=== PATIENT | female | born 1975 | race African-American/Black ===

== ENCOUNTER 2020-04-09 12:51 | Emergency (ER) | payer MEDICAID ==
[2020-04-09] MEDS ORDERED: Ketorolac 30 MG/ML SDV IM ONE (13:21)
[2020-04-09] MEDS ORDERED: Acetaminophen/HYDROcodone 325-5 MG Tab PO ONE (13:21)
[2020-04-09] MEDS ORDERED: FLU VACC QS2020-21(6MOS UP)/PF 60 MCG/0.5 ML SYRINGE IM ONE (13:45)
--- NOTE | 2020-04-09 13:57 | EDM.PDOC ---
ED HPI GENERAL MEDICAL PROBLEM - General Chief Complaint: Back Pain or Injury Stated Complaint: [facility] Time Seen by Provider: 04/09/20 13:15 Source of Information: Reports: Patient, RN Notes Reviewed - History of Present Illness INITIAL COMMENTS - FREE TEXT/NARRATIVE: 45 yr old female comes in with L leg pain. This has been going on off and on for months, worse today. No recent injury. Sharp pain L low back that radiates down thigh of LLE. No numbness or tingling. Ibuprofen not giving much relief. Treatments AEROSPACE MANAGER: Reports: Other (see below) Other Treatments AEROSPACE MANAGER: muscle relaxant of her boyfriends Left Hip Pain Score (Numeric/FACES): 10 - Related Data Allergies Allergy/AdvReac Type Severity Reaction Status Date / Time No Known Allergies Allergy Verified 04/09/20 13:07 Home Meds: Home Meds Acetaminophen/HYDROcodone [[place] 325-5 MG] 1 tab PO Q6H PRN #10 tablet 04/09/20 [Rx] Escitalopram [Lexapro] 10 mg PO DAILY 04/09/20 [History] Prazosin HCl [Prazosin] 2 mg PO DAILY 04/09/20 [History] hydrOXYzine pamoate [Vistaril] 25 mg PO DAILY 04/09/20 [History] lamoTRIgine [Lamotrigine] 25 mg PO DAILY 04/09/20 [History] predniSONE [Prednisone] 20 mg PO DAILY #7 tablet 04/09/20 [Rx] Past Medical History Musculoskeletal History: Reports: Other (See Below) Other Musculoskeletal History: left hip injury from accident many years ago Psychiatric History: Reports: Anxiety, Bipolar Social & Family History - Tobacco Use Tobacco Use Status *Q: Current Every Day Tobacco User Years of Tobacco use: 23 Packs/Tins Daily: 0.2 - Caffeine Use Caffeine Use: Reports: None - Recreational Drug Use Recreational Drug Use: No ED ROS GENERAL - Review of Systems Review Of Systems: See Below Constitutional: Denies: Fever, Chills, Diaphoresis HEENT: Reports: No Symptoms Respiratory: Reports: No Symptoms Cardiovascular: Reports: No Symptoms GI/Abdominal: Reports: No Symptoms Musculoskeletal: Reports: Back Pain, Leg Pain Skin: Reports: No Symptoms Neurological: Reports: No Symptoms ED EXAM,LOWER BACK PAIN/INJURY - Physical Exam Exam: See Below General Appearance: Alert, Moderate Distress Head: Atraumatic Neck: Supple Respiratory/Chest: No Respiratory Distress, Lungs Clear, Normal Breath Sounds Cardiovascular: Regular Rate, Rhythm Back Exam: Other (no visible swelling). No: Paraspinal Tenderness, Vertebral Tenderness Extremities: Normal Inspection. No: Pedal Edema, Leg Pain Neurological: Alert, No Motor/Sensory Deficits, Straight Leg Raise (L) (pain) Course - Vital Signs Last Recorded V/S: Last Vital Signs Temp 98.8 F 04/09/20 13:00 Pulse 95 04/09/20 13:00 Resp 20 04/09/20 13:00 BP 108/72 04/09/20 13:00 Pulse Ox 100 04/09/20 13:00 - Orders/Labs/Meds Orders: Active Orders 24 hr Category Date Time Status Influenza Vaccine Charge [RC] .DISCHARGE Care 04/09/20 13:10 Active Meds: Medications Discontinued Medications Generic Name Dose Route Start Last Admin Trade Name Freq PRN Reason Stop Dose Admin Hydrocodone Bitart/Acetaminophen 1 tab 04/09/20 13:21 04/09/20 13:59 [place] 325-5 Mg PO 04/09/20 13:22 1 tab ONETIME ONE Administration Influenza Virus Vaccine 1 each 04/09/20 13:10 Pharmacy To Dose - Influenza Vaccine IM 04/09/20 13:11 ONETIME ONE Influenza Virus Vaccine 60 mcg 04/09/20 13:45 04/09/20 14:03 Fluzone Quad [id number] Syringe IM 04/09/20 13:46 Not Given .ONCE ONE Ketorolac Tromethamine 30 mg 04/09/20 13:21 04/09/20 13:59 Toradol IM 04/09/20 13:22 30 mg ONETIME ONE Administration Departure - Departure Time of Disposition: 13:53 Disposition: Home, Self-Care 01 Condition: Fair Clinical Impression: Back pain Qualifiers: Back pain location: low back pain Chronicity: acute Back pain laterality: left Sciatica presence: with sciatica Sciatica laterality: sciatica of left side Qualified Code(s): M54.42 - Lumbago with sciatica, left side - Discharge Information Prescriptions: Acetaminophen/HYDROcodone [[place] 325-5 MG] 1 tab PO Q6H PRN #10 tablet PRN Reason: Pain predniSONE [Prednisone] 20 mg PO DAILY #7 tablet Instructions: Acute Back Pain, Adult Referrals: PCP,None [Primary Care Provider] - Forms: ED Department Discharge Additional Instructions: Rest back, no heavy lifting. Alternate ice and heat low back as needed. Advil or ibuprofen 400 mg or 2 tabs 3 times daily. Tylenol in between doses for extra pain relief as needed or hydrocodone in between doses 2 to 3 times daily if needed for severe pain. Prescription has been sent to [facility], [facility]. See one of providers at our [facility] medical clinic in about 3 to 4 days for recheck, call [phone] for appointment. Sepsis Event Note (ED) - Evaluation Sepsis Screening Result: No Definite Risk - Focused Exam Vital Signs: Vital Signs Temp Pulse Resp BP Pulse Ox 04/09/20 13:00 98.8 F 95 20 108/72 100 - My Orders Last 24 Hours: My Active Orders 04/09/20 13:10 Influenza Vaccine Charge [RC] .DISCHARGE - Assessment/Plan Last 24 Hours: My Active Orders 04/09/20 13:10 Influenza Vaccine Charge [RC] .DISCHARGE
== END 2020-04-09 15:05 | disposition home or self-care (01) ==
LOC: JD.ED 12:51
DX: M54.42 Lumbago with sciatica, left side (principal); F31.9 Bipolar disorder, unspecified; F41.9 Anxiety disorder, unspecified; F17.210 Nicotine dependence, cigarettes, uncomplicated; Z79.899 Other long term (current) drug therapy
CPT/HCPCS: 96372; 99284; A9270; J1885; 99283

== ENCOUNTER 2021-02-12 07:40 | Emergency (ER) | payer MEDICAID ==
--- NOTE | 2021-02-12 08:12 | EDM.PDOC ---
ED HPI GENERAL MEDICAL PROBLEM - General Chief Complaint: General Stated Complaint: chest pain Time Seen by Provider: 02/12/21 07:53 Source of Information: Reports: Patient History Limitations: Reports: No Limitations - History of Present Illness INITIAL COMMENTS - FREE TEXT/NARRATIVE: The patient presents with chest and dima pain. This has been going on for about a week. She has no shortness of breath with it. She denies having a fever, chills or cough. She says the pain comes and goes. She has no headache with it. She has some abdominal cramping at times but she feels her period is coming. She denies any injury to her arms. The pain is in both arms. She has no numbness or weakness. She has a history of schizophrenia and she has not taken her medications in about a week. Onset: Gradual Duration: Week(s): (1) Location: Reports: Chest, Upper Extremity, Left, Upper Extremity, Right Quality: Reports: Sharp Severity: Moderate Improves with: Reports: None Worsens with: Reports: None Associated Symptoms: Reports: Chest Pain. Denies: Cough, Fever/Chills, Headaches, Nausea/Vomiting, Shortness of Breath Generalized Pain Score (Numeric/FACES): 9 - Related Data Allergies Allergy/AdvReac Type Severity Reaction Status Date / Time No Known Allergies Allergy Verified 02/12/21 07:49 Home Meds: Home Meds Acetaminophen/HYDROcodone [[place] 325-5 MG] 1 tab PO Q6H PRN #10 tablet 04/09/20 [Rx] Escitalopram [Lexapro] 10 mg PO DAILY 04/09/20 [History] Prazosin HCl [Prazosin] 2 mg PO DAILY 04/09/20 [History] hydrOXYzine pamoate [Vistaril] 25 mg PO DAILY 04/09/20 [History] lamoTRIgine [Lamotrigine] 25 mg PO DAILY 04/09/20 [History] predniSONE [Prednisone] 20 mg PO DAILY #7 tablet 04/09/20 [Rx] Past Medical History Musculoskeletal History: Reports: Other (See Below) Other Musculoskeletal History: left hip injury from accident many years ago Psychiatric History: Reports: Anxiety, Bipolar Endocrine/Metabolic History: Reports: Obesity/BMI 30+ Social & Family History - Tobacco Use Tobacco Use Status *Q: Current Every Day Tobacco User Years of Tobacco use: 14 Packs/Tins Daily: 0.5 - Caffeine Use Caffeine Use: Reports: Coffee - Recreational Drug Use Recreational Drug Use: Yes Recreational Drug Type: Reports: Marijuana/Hashish ED ROS GENERAL - Review of Systems Review Of Systems: See Below Constitutional: Reports: No Symptoms HEENT: Reports: No Symptoms Respiratory: Reports: No Symptoms Cardiovascular: Reports: No Symptoms Endocrine: Reports: No Symptoms GI/Abdominal: Reports: No Symptoms : Reports: No Symptoms Musculoskeletal: Reports: Arm Pain (bilateral) Skin: Reports: No Symptoms ED EXAM, GENERAL - Physical Exam Exam: See Below Exam Limited By: No Limitations General Appearance: Alert, No Apparent Distress Ears: Normal External Exam Nose: Normal Inspection Head: Atraumatic, Normocephalic Neck: Normal Inspection Respiratory/Chest: No Respiratory Distress, Lungs Clear, Normal Breath Sounds Cardiovascular: Regular Rate, Rhythm, No Edema, No Murmur GI/Abdominal: Soft, Non-Tender, No Organomegaly, No Mass Back Exam: Normal Inspection Extremities: Other (No pain upon palpation to both arms. Good sensation and pulses bilaterally.) Neurological: Alert, Oriented, No Motor/Sensory Deficits #1 Interpretation EKG Date: 02/12/21 Time: 07:52 Rhythm: NSR Rate (Beats/Min): 79 [place]: Normal P-Wave: Present QRS: Normal ST-T: Normal QT: Normal Course - Vital Signs Last Recorded V/S: Last Vital Signs Temp 96.9 F 02/12/21 07:46 Pulse 87 02/12/21 07:46 Resp 18 02/12/21 07:46 BP 133/94 H 02/12/21 07:46 Pulse Ox 99 02/12/21 07:46 - Orders/Labs/Meds Orders: Active Orders 24 hr Category Date Time Status Cardiac Monitoring [RC] . DIRECTED Care 02/12/21 08:06 Active Labs: Laboratory Tests 02/12/21 02/12/21 Range/Units 08:15 08:15 WBC 10.33 H (3.98-10.04) K/mm3 RBC 4.53 (3.98-5.22) M/mm3 Hgb 11.0 L (11.2-15.7) gm/dl Hct 34.5 (34.1-44.9) % MCV 76.2 L (79.4-94.8) fl MCH 24.3 L (25.6-32.2) pg MCHC 31.9 L (32.2-35.5) g/dl RDW Std Deviation 43.0 (36.4-46.3) fL Plt Count 326 (182-369) K/mm3 MPV 9.5 (9.4-12.3) fl Neut % (Auto) 68.9 (34.0-71.1) % Lymph % (Auto) 21.3 (19.3-51.7) % [place] % (Auto) 7.3 (4.7-12.5) % Eos % (Auto) 2.1 (0.7-5.8) Baso % (Auto) 0.2 (0.1-1.2) % Neut # (Auto) 7.12 H (1.56-6.13) K/mm3 Lymph # (Auto) 2.20 (1.18-3.74) K/mm3 [place] # (Auto) 0.75 H (0.24-0.36) K/mm3 Eos # (Auto) 0.22 (0.04-0.36) K/mm3 Baso # (Auto) 0.02 (0.01-0.08) K/mm3 Sodium 139 (136-145) mEq/L Potassium 3.7 (3.5-5.1) mEq/L Chloride 105 (98-107) mEq/L Carbon Dioxide 22 (21-32) mEq/L Anion Gap 15.7 H (5-15) BUN 9 (7-18) mg/dL Creatinine 0.7 (0.55-1.02) mg/dL Est Cr Clr Drug Dosing 78.58 mL/min Estimated GFR (MDRD) > 60 (>60) mL/min BUN/Creatinine Ratio 12.9 L (14-18) Glucose 95 (70-99) mg/dL Calcium 8.1 L (8.5-10.1) mg/dL Total Bilirubin 0.4 (0.2-1.0) mg/dL AST 14 L (15-37) U/L ALT 15 (14-59) U/L Alkaline Phosphatase 95 (46-116) U/L Troponin I < 0.017 (0.00-0.056) ng/mL C-Reactive Protein 1.9 H* (<1.0) mg/dL Total Protein 7.0 (6.4-8.2) g/dl Albumin 2.9 L (3.4-5.0) g/dl Globulin 4.1 gm/dL Albumin/Globulin Ratio 0.7 L (1-2) - Re-Assessments/Exams Free Text/Narrative Re-Assessment/Exam: 02/12/21 08:11 I ordered an EKG, CXR and labs. Her EKG shows a NSR with no acute changes. 02/12/21 09:42 Her CXR looks good. Her WBC was slightly elevated at 10.33. Her CMP looks good. Her troponin was negative. Her CRP was elevated at 1.9. She did stop all of her psychiatric medications about the time this all started. I will have her start that up again. I feel that may have something to do with the way she is feeling. Departure - Departure Time of Disposition: 09:50 Disposition: Home, Self-Care 01 Condition: Good Clinical Impression: Atypical chest pain, Bilateral arm pain - Discharge Information *PRESCRIPTION DRUG MONITORING PROGRAM REVIEWED*: Not Applicable *COPY OF PRESCRIPTION DRUG MONITORING REPORT IN PATIENT TOPHER: Not Applicable Referrals: Yesenia Lee MD [Primary Care Provider] - 1 Week Forms: ED Department Discharge Additional Instructions: Start taking your medications again. Take tylenol or motrin as needed for pain. Drink plenty of fluids. Follow up with your doctor within a week. Please return if you are worse. Sepsis Event Note (ED) - Evaluation Sepsis Screening Result: No Definite Risk - Focused Exam Vital Signs: Vital Signs Temp Pulse Resp BP Pulse Ox 02/12/21 07:46 96.9 F 87 18 133/94 H 99 - My Orders Last 24 Hours: My Active Orders 02/12/21 08:06 Cardiac Monitoring [RC] . DIRECTED - Assessment/Plan Last 24 Hours: My Active Orders 02/12/21 08:06 Cardiac Monitoring [RC] . DIRECTED
--- NOTE | 2021-02-12 08:33 | CR ---
Chest: Portable view of the chest was obtained. Comparison: No prior chest imaging is available. Heart size and mediastinum are within normal limits. Slight scarring or atelectasis is seen within the left upper lung. Minimal vascular calcification is seen overlying the right upper lung. Lungs otherwise are clear. Bony structures show nothing acute. Impression: 1. Findings which I believe to be incidental as noted above. 2. Nothing acute is appreciated. Diagnostic code #2
== END 2021-02-12 10:00 | disposition home or self-care (01) ==
LOC: JD.ED 07:40
DX: R07.89 Other chest pain (principal); M79.601 Pain in right arm; M79.602 Pain in left arm; D72.829 Elevated white blood cell count, unspecified; R79.82 Elevated C-reactive protein (CRP); E66.9 Obesity, unspecified; Z68.30 Body mass index [BMI] 30.0-30.9, adult; Z72.0 Tobacco use; Z79.899 Other long term (current) drug therapy
CPT/HCPCS: 36415; 71045; 71045-26; 80053; 84484; 85025; 86140; 93005; 93010; 99283; 99285-25